=== PATIENT | female | born 1995 | race Hispanic/Latino ===

== ENCOUNTER 2017-06-11 02:11 | Emergency (ER) | payer OTHER ==
[~2017-06-11] VITALS: Ht 170.2 cm; Wt 100.0 kg
[~2017-06-11 02:11] MED LIST: CEPH-512 PO
[2017-06-11 02:24] VITALS: BP 134/83; PULSE 84; RESP 18; O2SAT 99
--- NOTE | 2017-06-11 02:30 | ED.REPORT ---
HPI- Female Date of Service Jun 11, 2017 ED Provider: Gideon Richard MD Patient is a 22 year old female who presents to the ED complaining of irregular vaginal bleeding onset 1800 yesterday. Associated symptoms include suprapubic pain and headache. Patient states that she has been having large clots on her pads and going through 4-5 pads. She denies or lightheadedness. The patient's last menstrual cycle at the beginning of this month. She states that she has never had this much vaginal bleeding before. Nursing Notes Stated Complaint: VAG BLEED, LOTS OF BLOOD CLOTS Chief Complaint: Female Abdominal Pain Nursing Notes Reviewed: Yes Allergies: Coded Allergies: No Known Allergies (Unverified , 04/22/16) Scheduled Cephalexin (Keflex) 500 Mg Capsule 500 MG PO TID General Time Seen by MD: 02:30 Chief Complaint Vaginal bleeding... Hx Obtained From: Patient Arrived By: Walk-in Sudden in Onset?: Yes Onset Occurred: Yesterday Symptom Duration: Since onset Location: : Suprapubic Quality: Cramping Radiation: Does not radiate Severity: Current: Mild Status: Last NL menst cycle Similar Sx Previous: No Past Medical History Past Medical History Reports: Asthma Smoking History Unknown if Ever Smoker Social History Other Social History: Good social support Ambulatory Status Independent Review of Systems Constitutional: Denies: Chills, Fever Female: Reports: Pelvic pain, Vaginal bleeding - abnl, Denies: Skin: Denies Itching, Denies Rash Neurologic: Reports: Headache, Denies: Lightheaded Complete sys rev & neg: except as marked. Respiratory: Denies: Non-productive cough, Shortness of breath Physical Exam Initial Vital Signs Vital Signs (First) Date Time Temp Pulse Resp B/P Pulse Ox O2 Delivery O2 Flow Rate FiO2 06/11/17 02:24 36.4 84 18 134/83 99 Room Air Initial VS: Reviewed Female Genitourinary: Auto Repair Technician present, External genitalia NL, No cervical motion tend small amout of clotted blood in vagina closed cervix no active bleeding General/Constitutional: Awake, Alert, No acute distress hirsute Respiratory / Chest: Atraumatic, Breath sounds NL, Breath sounds = bilat, No respiratory distress Cardiovascular: Heart rate NL, Regular rhythm, Heart sounds NL, No gallop, No murmurs, No rubs Abdomen: Atraumatic, Soft, Non-tender, No distention Skin: Atraumatic, Color NL, No rash, Warm, Dry Head / Eyes: Atraumatic, Normocephalic, PERRL, EOMI Upper Extremity / MS: Atraumatic, Full range of motion Neurologic: Oriented X3, Speech NL Psychiatric: Affect NL, Mood NL Interpretation & Diagnostics Lab Results Interpretation Result Diagram: 06/11/17 0340 06/11/17 0340 Test 06/11/17 03:40 White Blood Count 10.1th/mm3 (3.8-10.1) Red Blood Count 4.04mil/mm3 (3.90-5.20) Hemoglobin 12.2g/dL (12.0-15.6) Hematocrit 36.1% (35.0-46.0) Mean Corpuscular Volume 89.4fL (81-100) Mean Corpuscular Hemoglobin 30.2pg (27.0-35.0) Mean Corpuscular Hemoglobin Concent 33.8% (32.0-37.0) Red Cell Distribution Width 12.8% (12.3-15.4) Platelet Count 268bil/L (150-400) Sodium Level 141mEq/L (134-144) Potassium Level 4.0mEq/L (3.5-5.2) Chloride Level 102mEq/L (97-108) Carbon Dioxide Level 23mmol/L (18-29) Blood Urea Nitrogen 14mg/dL (6-20) Creatinine 0.51mg/dL (0.57-1.00) Estimat Glomerular Filtration Rate 218mL/min (>59) Glucose Level 96mg/dL (60-99) Calcium Level 8.9mg/dL (8.5-10.1) Total Bilirubin 0.4mg/dL (0.0-1.2) Aspartate Amino Transf (AST/SGOT) 20U/L (0-50) Alanine Aminotransferase (ALT/SGPT) 15U/L (0-32) Alkaline Phosphatase 69U/L (25-150) Total Protein 8.0g/dL (6.4-8.4) Albumin 4.3g/dL (3.4-5.0) Hold Ortega Top Tube Received (Received) Re-Eval/Medical Decision Med Decision/Clinical Course Patient is a generally healthy 22-year-old female who presents with 1 day of vaginal bleeding. She has soaked through 4-5 pads during this time. She is concerned that she is going to "bleed out". Here in the emergency department she is afebrile with stable vital signs and relatively benign examination. Pelvic exam reveals a scant clotted blood with no active or brisk bleeding. CBC reveals normal hematocrit and metabolic panel is normal. She is overall healthy and not on blood thinners, she is not sexually active and states that she is not on any contraception. test is negative, urine dip showed blood but was negative for signs of infection. She remained hemodynamically stable without any ongoing bleeding. She is notably quite hirsute in appearance raising the question of polycystic ovarian syndrome. I have advised her that she may benefit from following up with women's health and that if she is experiencing irregular menstrual bleeding that she may benefit from starting an oral contraceptive pill however I will defer this to [facility]. At this time I feel that she is appropriate for discharge home. Prior to discharge follow-up and return precautions were reviewed in detail with the patient who verbalized understanding and agreement with the plan. The patient was discharged in stable condition. Re-Evaluation/Progress : Time of Eval: 02:59 Re-Evaluation/Progress Note: Discussed results and plan for discharge pending lab results. Patient understands and agrees to plan. All questions were addressed. Counseled Regarding: Diagnosis, Lab results, Need for follow-up, When/why to return to ED Discharge & Departure Impression: Primary Impression: Vaginal bleeding Disposition: Home Discharge Condition All VS Reviewed: Yes Condition: Stable Additional Instructions: Thank you for seeking care at the emergency room. There was not a serious concern for the vaginal bleeding you are experiencing at this time. Our primary goal today in the Emergency Department was to evaluate you for any life-threatening conditions. Your evaluation was reassuring. You should follow-up with the referred [facility]'s [facility] clinic first thing Monday morning. You should return to the Emergency Department immediately if you develop ongoing bleeding, lightheadedness, pain, worsening bleeding or any other concerning signs or symptoms. Thank you for letting us partake in your care today. Referrals: Lyric Sanchez MD (PCP) [facility] Scribe Attestation Portions of this note were transcribed by Kavya Banda. I, Dr. Richard personally performed the history, physical exam and medical decision-making; I reviewed and confirmed the accuracy of the information in the transcribed note. Signed by: Onofre Solis, 06/10/17 copies to: Lyric Sancehz MD, Beck O MD Jun 11, 2017 02:30 Cyndi Banda Jun 11, 2017 02:38
[2017-06-11 03:50] LABS: Mean Corpuscular Hemoglobin 30.2 pg (27.0-35.0); Mean Corpuscular Volume 89.4 fL (81-100)
== END 2017-06-11 04:36 | disposition home or self-care (01) ==
LOC: SED 02:11
DX: N93.9 Abnormal uterine and vaginal bleeding, unspecified (principal)